=== PATIENT | female | born 1970 | race Caucasian/White ===

== ENCOUNTER → 2017-01-10 | Outpatient (CLI) | payer OTHER | LOC: MAMO 12-22 15:30 | DX: Z12.31 Encounter for screening mammogram for malignant neoplasm of breast (principal) | CPT/HCPCS: G0202 ==

== ENCOUNTER → 2021-01-05 | Outpatient (CLI) | payer OTHER ==
[2021-01-05 19:08] LABS: BUN/CREATININE RATIO 28 (0-10)
== END ==
LOC: LAB 18:19
PROVIDERS: Family Medicine
DX: E11.9 Type 2 diabetes mellitus without complications (principal)
CPT/HCPCS: 80053; 83036; 84443

== ENCOUNTER 2021-07-12 17:54 | Emergency (ER) | payer OTHER ==
[2021-07-12 19:18] LABS: HEMOGLOBIN 13.1 gm/dl (12.3-15.3); RED BLOOD COUNT 4.65 M/UL (4.00-5.10)
[2021-07-12 19:38] LABS: BUN/CREATININE RATIO 14 (0-10)
[2021-07-12] MEDS ORDERED: CLEOCIN HCL150 MG PO (20:44)
[2021-07-12] MEDS ORDERED: DECADRON6 MG PO (20:44)
== END 2021-07-12 21:11 | disposition home or self-care (01) ==
LOC: ER1 17:54
PROVIDERS: Physician Assistant
DX: R10.11 Right upper quadrant pain (principal); R19.7 Diarrhea, unspecified; Z20.822 Contact with and (suspected) exposure to COVID-19; E11.9 Type 2 diabetes mellitus without complications; E78.5 Hyperlipidemia, unspecified; I10 Essential (primary) hypertension; Z90.710 Acquired absence of both cervix and uterus; Z90.89 Acquired absence of other organs; Z88.0 Allergy status to penicillin; Z91.012 Allergy to eggs
CPT/HCPCS: 80053; 81001; 83690; 85025; 96374; 99284; J1100; U0003

== ENCOUNTER 2021-08-04 19:09 | Emergency (ER) | payer OTHER ==
[~2021-08-04 19:09] MED LIST: CLEOCIN HCL150 MG PO; DECADRON6 MG PO
[2021-08-04 20:14] LABS: HEMOGLOBIN 11.7 gm/dl (12.3-15.3); RED BLOOD COUNT 4.19 M/UL (4.00-5.10); WHITE BLOOD COUNT 11.1 K/UL (4.5-11.0)
[2021-08-04 20:24] LABS: BUN/CREATININE RATIO 13 (0-10)
[2021-08-04] MEDS ORDERED: KEFLEX CAP 250250 MG PO (21:25)
== END 2021-08-04 22:05 | disposition home or self-care (01) ==
LOC: ER1 19:09
PROVIDERS: Family Medicine
DX: T81.41XA Infection following a procedure, superficial incisional surgical site, initial encounter (principal); Z90.49 Acquired absence of other specified parts of digestive tract
CPT/HCPCS: 80053; 81001; 83690; 85025; 87070; 87205; 96374; 96375; 99284; J0690; J2270; J2550; J7030; Q9967